=== PATIENT | female | born 1945 | race Caucasian/White ===

== ENCOUNTER → 2016-06-05 | Outpatient (CLI) | payer MEDICARE ==
[~2016-06-05] MED LIST: ADV1DS; ALBU17AE3; ALBU17AE3 IH; ASP325TEC; ATROVENT; BENZ0.5T3 PO; CETI1TAB2; CLNZ.5T; CLON1TAB36; CMBV14.7IN; CYCL10TA45; CYCL10TA9 PO; DCS100C; DIGO250T; DIGO250T96 PO; DONE10TA41 PO; FLUT1DIS26 IH; FRSM40T; FRSM40T PO; GLMP4T; GLYB2.5T4 PO; HYDR1TAB86 PO; KCL20TCR; KCL20TCR PO; LANOXIN; LASIX; LEVO500T69 PO; LISI5TAB14; LORA2TAB PO; LRZ1T; LVT.1T; LVT.1T PO; METO25TA PO; MTF500T PO; MTF500TCR; MTP25TSR; NF-METANX PO; NITR0.3T6 SL; NTR.4SL; NTR.6TD; OXYCODONE; PRD20T PO; PROP1TAB77; SERT100T PO; SLMFT1E; SRTR100T; SYNTHROID; ZESTRIL; [UNRECOGNIZED DRUG - OTHER]
--- OUTSIDE RECORDS SUMMARY | 2016-06-05 15:21 | XMS REPORT | Continuity of Care Document ---
Author Author [facility] Organization [facility] Address Unknown Phone Unavailable Allergies Active Description Code Type Severity Reaction Onset Reported/Identified Relationship to Patient Clinical Status Yes amoxicillin [id number] Drug Allergy Mild DIARRHEA 08/19/2005 Yes ALOEVERA ALOEVERA Unknown N/A 08/19/2005 Yes alprazolam [id number] Drug Allergy Unknown N/A 08/19/2005 Yes aspirin [id number] Drug Allergy Unknown N/A 08/19/2005 Yes caffeine [id number] Drug Allergy Unknown N/A 08/19/2005 Yes citalopram [id number] Drug Allergy Unknown N/A 08/19/2005 Yes clarithromycin [id number] Drug Allergy Unknown N/A 08/19/2005 Yes orphenadrine [id number] Drug Allergy Unknown N/A 08/19/2005 Yes SURGICAL STEEL SURGICAL STEEL Unknown N/A 08/19/2005 Yes TAPES TAPES Unknown N/A 08/19/2005 Yes diltiazem [id number] Drug Allergy Severe ARRYTHMIAS 04/20/2006 Yes verapamil [id number] Drug Allergy Severe ARRYTHMIAS 04/20/2006 Yes diazepam [id number] Drug Allergy Unknown PATIENT CAN SHERIDAN 04/20/2006 Yes esomeprazole [id number] Drug Allergy Unknown "SENSITIVE TO N 04/20/2006 Yes gabapentin [id number] Drug Allergy Unknown "CAUSES KIDNEY 04/20/2006 Yes ketorolac [id number] Drug Allergy Unknown "CAUSES KIDNEY 04/20/2006 Yes levofloxacin [id number] Drug Allergy Unknown ALLERGIC TO "IV 04/20/2006 Yes montelukast [id number] Drug Allergy Unknown "SENSITIVE TO S 04/20/2006 Yes azithromycin [id number] Drug Allergy Unknown N/A 02/21/2011 Yes spironolactone [id number] Drug Allergy Unknown N/A 02/21/2011 Medications Problems Date Dx Coded Attending Type Code Diagnosis Diagnosed By 02/23/2011 Ot 250.00 DIAB MARILIN WO COMPL, TYPE II OR UNSPEC TY 02/23/2011 Ot 610.1 DIFFUS CYSTIC MASTOPATHY 02/23/2011 Ot V10.3 HX OF BREAST MALIGNANCY 06/27/2011 Ot 244.9 HYPOTHYROIDISM NOS 06/27/2011 Ot 250.00 DIAB MARILIN WO COMPL, TYPE II OR UNSPEC TY 06/27/2011 Ot 300.00 ANXIETY STATE NOS 06/27/2011 Ot 305.1 TOBACCO USE DISORDER 06/27/2011 Ot 356.9 IDIO PERIPH NEURPTHY NOS 06/27/2011 Ot 491.21 OBSTR CHRONIC BRONCHITIS, W (ACUTE) EXAC 06/27/2011 Ot 739.2 SOMAT DYSFUNC THORAC REG 06/27/2011 Ot V10.3 HX OF BREAST MALIGNANCY 04/20/2014 SHANDA BOBAN N Ot 305.1 04/20/2014 SHANDA, BOBAN N Ot 496 04/20/2014 SHANDA BOBAN N Ot 786.6 04/20/2014 SHANDA BOBAN N Ot 789.30 04/20/2014 SHANDA BOBAN N Ot V10.3 04/20/2014 SHANDA, BOBAN N Ot V45.71 04/20/2014 SHANDA, BOBAN N Ot V46.2 04/20/2014 SHANDA, BOBAN N Ot V58.69 04/20/2014 SHANDA, BOBAN N Ot V67.09 10/19/2014 SHANDA, BOBAN N Ot 174.9 10/19/2014 SHANDA, BOBAN N Ot 305.1 10/19/2014 SHANDA, BOBAN N Ot 496 10/19/2014 SHANDA, BOBAN N Ot V76.11 03/24/2015 SHANDA, BOBAN N Ot F17.210 03/24/2015 SHANDA, BOBAN N Ot J44.9 03/24/2015 SHANDA, BOBAN N Ot Z08 03/24/2015 SHANDA, BOBAN N Ot Z79.899 03/24/2015 SHANDA, BOBAN N Ot Z85.3 03/24/2015 SHANDA, BOBAN N Ot Z90.12 03/24/2015 SHANDA, BOBAN N Ot Z99.81 03/30/2015 SHANDA, BOBAN N Ot F17.210 03/30/2015 SHANDA, BOBAN N Ot J44.9 03/30/2015 ESTELA LAND N Ot Z08 03/30/2015 ESTELA LAND N Ot Z79.899 03/30/2015 ESTELA LAND N Ot Z85.3 03/30/2015 ESTELA LAND N Ot Z90.12 03/30/2015 ESTELA LAND N Ot Z99.81 10/08/2015 ESTELA LAND N Ot C50.412 MALIG NEOPLASM OF UPPER-OUTER QUADRANT O 10/08/2015 ESTELA LAND N Ot Z12.31 ENCNTR SCREEN MAMMOGRAM FOR MALIGNANT NE 10/27/2015 ESTELA LAND N Ot C50.412 MALIG NEOPLASM OF UPPER-OUTER QUADRANT O 10/27/2015 ESTELA LAND N Ot Z12.31 ENCNTR SCREEN MAMMOGRAM FOR MALIGNANT NE 02/03/2016 TANA CONTRERAS FACC, ALI FACP CCDS Ot I65.23 OCCLUSION AND STENOSIS OF BILATERAL TOPETE 02/04/2016 TANA MAYENC, ALI FACP CCDS Ot F17.210 NICOTINE DEPENDENCE, CIGARETTES , UNCOMPL 02/04/2016 TANA CONTRERAS FACC, ALI FACP CCDS Ot I25.119 ATHSCL HEART DISEASE OF [place] COR ART W 02/04/2016 TANA MAYENC, ALI FACP CCDS Ot I50.9 HEART FAILURE, UNSPECIFIED 02/04/2016 TANA CONTRERAS FACC, ALI FACP CCDS Ot J44.9 CHRONIC OBSTRUCTIVE PULMONARY DISEASE, U 02/04/2016 TANA CONTRERAS FACC, ALI FACP CCDS Ot F17.210 NICOTINE DEPENDENCE, CIGARETTES , UNCOMPL 02/04/2016 TANA CONTRERAS FACC, ALI FACP CCDS Ot I25.119 ATHSCL HEART DISEASE OF [place] COR ART W 02/04/2016 TANA MAYENC, ALI FACP CCDS Ot I50.9 HEART FAILURE, UNSPECIFIED 02/04/2016 TANA MAYENC, ALI FACP CCDS Ot J44.9 CHRONIC OBSTRUCTIVE PULMONARY DISEASE, U 02/23/2016 ESTELA LAND Jessica Ot E03.9 HYPOTHYROIDISM, UNSPECIFIED 02/23/2016 SHANDA, ESTELA N Ot E11.9 TYPE 2 DIABETES MELLITUS WITHOUT COMPLIC 02/23/2016 SHANDA, ESTELA N Ot F17.210 NICOTINE DEPENDENCE, CIGARETTES, UNCOMPL 02/23/2016 ISABELLA LANDLAVELLE Jessica Ot I10 ESSENTIAL (PRIMARY) HYPERTENSION 02/23/2016 SHANDA ESTELA Lopez Ot I25.10 ATHSCL HEART DISEASE OF [place] CORONARY 02/23/2016 SHANDA, ISABELLALAVELLE Jessica Ot I48.91 UNSPECIFIED ATRIAL FIBRILLATION 02/23/2016 SHANDA ESTELA Lopez Ot J44.9 CHRONIC OBSTRUCTIVE PULMONARY DISEASE, U 02/23/2016 SHANDA ESTELA Lopez Ot Z08 ENCNTR FOR FOLLOW-UP EXAM AFTER TRTMT FO 02/23/2016 SHANDA ESTELA Lopez Ot Z79.84 AIRPLANE PILOT COMMERCIAL (CURRENT) USE OF ORAL HYPOGLYC 02/23/2016 SHANDA ESTELA Lopez Ot Z79.899 OTHER AIRPLANE PILOT COMMERCIAL (CURRENT) DRUG THERAPY 02/23/2016 SHANDA ESTELA Lopez Ot Z85.3 PERSONAL HISTORY OF MALIGNANT NEOPLASM O 02/23/2016 SHANDA ESTELA Lopez Ot Z90.12 ACQUIRED ABSENCE OF LEFT BREAST AND NIPP 02/24/2016 TANA MAYENC, ALI FACP CCDS Ot F17.210 NICOTINE DEPENDENCE, CIGARETTES , UNCOMPL 02/24/2016 TANA CONTRERAS FACC, ALI FACP CCDS Ot I25.119 ATHSCL HEART DISEASE OF [place] COR ART W 02/24/2016 TANA CONTRERAS FACC, COREY FACP CCDS Ot I50.9 HEART FAILURE, UNSPECIFIED 02/24/2016 TANA CONTRERAS FACC, ALI FACP CCDS Ot J44.9 CHRONIC OBSTRUCTIVE PULMONARY DISEASE, U 03/06/2016 TANA CONTRERAS FACC, ALI FACP CCDS Ot F17.210 NICOTINE DEPENDENCE, CIGARETTES , UNCOMPL 03/06/2016 TANA CONTRERAS FACC, ALI FACP CCDS Ot I25.119 ATHSCL HEART DISEASE OF [place] COR ART W 03/06/2016 TANA CONTRERAS FACC, COREY FACP CCDS Ot I50.9 HEART FAILURE, UNSPECIFIED 03/06/2016 TANA CONTRERAS FACC, ALI FACP CCDS Ot J44.9 CHRONIC OBSTRUCTIVE PULMONARY DISEASE, U 03/14/2016 SHANDAESTELA Ot E03.9 HYPOTHYROIDISM, UNSPECIFIED 03/14/2016 SHANDAESTELA Ot E11.9 TYPE 2 DIABETES MELLITUS WITHOUT COMPLIC 03/14/2016 ESETLA LAND Ot F17.210 NICOTINE DEPENDENCE, CIGARETTES, UNCOMPL 03/14/2016 ESTELA LAND Jessica Ot I10 ESSENTIAL (PRIMARY) HYPERTENSION 03/14/2016 ESTELA LAND Jessica Ot I25.10 ATHSCL HEART DISEASE OF [place] CORONARY 03/14/2016 ESTELA LAND Jessica Ot I48.91 UNSPECIFIED ATRIAL FIBRILLATION 03/14/2016 ESTELA LAND Jessica Ot J44.9 CHRONIC OBSTRUCTIVE PULMONARY DISEASE, U 03/14/2016 ESTELA LAND Jessica Ot Z08 ENCNTR FOR FOLLOW-UP EXAM AFTER TRTMT FO 03/14/2016 ESTELA LAND Jessica Ot Z79.84 AIRPLANE PILOT COMMERCIAL (CURRENT) USE OF ORAL HYPOGLYC 03/14/2016 ESTELA LAND N Ot Z79.899 OTHER LONGTERM (CURRENT) DRUG THERAPY 03/14/2016 SHANDA, ISABELLALAVELLE N Ot Z85.3 PERSONAL HISTORY OF MALIGNANT NEOPLASM O 03/14/2016 SHANDA, ISABELLALAVELLE N Ot Z90.12 ACQUIRED ABSENCE OF LEFT BREAST AND NIPP 03/31/2016 ESTELA LAND Jessica Ot E03.9 HYPOTHYROIDISM, UNSPECIFIED 03/31/2016 SHANDA, ISABELLALAVELLE Jessica Ot E11.9 TYPE 2 DIABETES MELLITUS WITHOUT COMPLIC 03/31/2016 ESTELA LAND Jessica Ot F17.210 NICOTINE DEPENDENCE, CIGARETTES, UNCOMPL 03/31/2016 ESTELA LAND N Ot I10 ESSENTIAL (PRIMARY) HYPERTENSION 03/31/2016 ESTELA LAND Jessica Ot I25.10 ATHSCL HEART DISEASE OF [place] CORONARY 03/31/2016 ESTELA LAND Jessica Ot I48.91 UNSPECIFIED ATRIAL FIBRILLATION 03/31/2016 ESTELA LAND Jessica Ot J44.9 CHRONIC OBSTRUCTIVE PULMONARY DISEASE, U 03/31/2016 ESTELA LAND Jessica Ot Z08 ENCNTR FOR FOLLOW-UP EXAM AFTER TRTMT FO 03/31/2016 ESTELA LAND Jessica Ot Z79.84 AIRPLANE PILOT COMMERCIAL (CURRENT) USE OF ORAL HYPOGLYC 03/31/2016 SHANDA, ISABELLALAVELLE N Ot Z79.899 OTHER LONGTERM (CURRENT) DRUG THERAPY 03/31/2016 SHANDAESTELA KELLY N Ot Z85.3 PERSONAL HISTORY OF MALIGNANT NEOPLASM O 03/31/2016 SHANDAESTELA KELLY N Ot Z90.12 ACQUIRED ABSENCE OF LEFT BREAST AND NIPP 04/04/2016 Ot 174.9 MALIGN NEOPL BREAST NOS 04/04/2016 Ot 496 CHR AIRWAY OBSTRUCT NEC 04/04/2016 Ot 793.89 OTH (ABN) FINDINGS ON RADIOLOGICAL EXAMI 04/04/2016 Ot V10.3 HX OF BREAST MALIGNANCY 04/04/2016 Ot V12.3 HX-BLOOD DISEASES 04/04/2016 Ot V45.71 ACQUIRED ABSENCE OF BREAST AND NIPPLE 04/04/2016 Ot V46.2 SUPPLEMENTAL OXYGEN 04/04/2016 Ot V58.69 OTH MED,LT,CURRENT USE 04/04/2016 Ot V64.2 NO PROC/PATIENT DECISION 04/04/2016 Ot V67.09 SURGERY FOLLOW-UP, OTHER SURGERY 04/04/2016 Ot 611.72 LUMP OR MASS IN BREAST 04/04/2016 Ot V72.83 EXAM PRE-OPERATIVE NEC 04/04/2016 Ot 611.72 LUMP OR MASS IN BREAST 04/04/2016 Ot V67.09 SURGERY FOLLOW-UP, OTHER SURGERY 04/04/2016 Ot 790.5 ABN SERUM ENZY LEVEL NEC 04/04/2016 Ot 356.9 IDIO PERIPH NEURPTHY NOS 04/04/2016 Ot 496 CHR AIRWAY OBSTRUCT NEC 04/04/2016 Ot 611.72 LUMP OR MASS IN BREAST 04/04/2016 Ot V10.3 HX OF BREAST MALIGNANCY 04/04/2016 Ot V12.3 HX-BLOOD DISEASES 04/04/2016 Ot V45.71 ACQUIRED ABSENCE OF BREAST AND NIPPLE 04/04/2016 Ot V46.2 SUPPLEMENTAL OXYGEN 04/04/2016 Ot V58.69 OTH MED,LT,CURRENT USE 04/04/2016 Ot V67.09 SURGERY FOLLOW-UP, OTHER SURGERY 04/04/2016 Ot 174.9 MALIGN NEOPL BREAST NOS 04/04/2016 Ot 793.80 UNSPEC ABNORMAL MAMMOGRAM 04/04/2016 Ot V45.71 ACQUIRED ABSENCE OF BREAST AND NIPPLE 04/04/2016 Ot 440.20 ATHEROSCLEROSIS [place] ARTERIES EXTREMIT 04/04/2016 Ot 729.5 PAIN IN LIMB 04/04/2016 Ot 785.9 CARDIOVAS SYS SYMP NEC 04/04/2016 ESTELA LAND Ot 174.9 MALIGN NEOPL BREAST NOS 04/04/2016 ESTELA LAND Ot 793.80 UNSPEC ABNORMAL MAMMOGRAM 04/04/2016 ESTELA LAND Ot 305.1 TOBACCO USE DISORDER 04/04/2016 ESTELA LAND N Ot 356.9 IDIO PERIPH NEURPTHY NOS 04/04/2016 ESTELA LAND N Ot 496 CHR AIRWAY OBSTRUCT NEC 04/04/2016 ESTELA LAND N Ot 786.6 CHEST SWELLING/MASS/LUMP 04/04/2016 ESTELA LAND N Ot V10.3 HX OF BREAST MALIGNANCY 04/04/2016 SHANDA ISABELLALAVELLE N Ot V12.3 HX-BLOOD DISEASES 04/04/2016 SHANDA ESTELA N Ot V45.71 ACQUIRED ABSENCE OF BREAST AND NIPPLE 04/04/2016 SHANDA ESTELA N Ot V46.2 SUPPLEMENTAL OXYGEN 04/04/2016 ESTELA LAND N Ot V58.69 OTH MED,LT,CURRENT USE 04/04/2016 SHANDA ISABELLALAVELLE N Ot V67.09 SURGERY FOLLOW-UP, OTHER SURGERY 04/04/2016 ESTELA LAND N Ot 786.6 CHEST SWELLING/MASS/LUMP 04/04/2016 SHANDA ISABELLALAVELLE N Ot V10.3 HX OF BREAST MALIGNANCY 04/04/2016 SHANDA ISABELLALAVELLE N Ot 174.9 MALIGN NEOPL BREAST NOS 04/04/2016 ESTELA LAND N Ot 793.89 OTH (ABN) FINDINGS ON RADIOLOGICAL EXAMI 04/04/2016 ALBINO CHOU HIGH ENERGY FORMING EQUIPMENT OPERATOR Ot 174.9 MALIGN NEOPL BREAST NOS 04/04/2016 ALBINO CHOU HIGH ENERGY FORMING EQUIPMENT OPERATOR Ot 786.6 CHEST SWELLING/MASS/LUMP 04/04/2016 ESTELA LAND N Ot 305.1 TOBACCO USE DISORDER 04/04/2016 SHANDA ISABELLALAVELLE Jessica Ot 496 CHR AIRWAY OBSTRUCT NEC 04/04/2016 SHANDA ISABELLALAVELLE N Ot 786.6 CHEST SWELLING/MASS/LUMP 04/04/2016 SHANDA ISABELLALAVELLE N Ot 789.30 ABDOMINAL/PELVIC SWELLING,MASS/LUMP UNSP 04/04/2016 SHANDA ESTELA Lopez Ot V10.3 HX OF BREAST MALIGNANCY 04/04/2016 ESTELA LAND N Ot V45.71 ACQUIRED ABSENCE OF BREAST AND NIPPLE 04/04/2016 SHANDA ESTELA N Ot V46.2 SUPPLEMENTAL OXYGEN 04/04/2016 SHANDA ESTELA Lopez Ot V58.69 OTH MED,LT,CURRENT USE 04/04/2016 SHANDA ESTELA N Ot V67.09 SURGERY FOLLOW-UP, OTHER SURGERY 04/04/2016 SHANDA, ESTELA Lopez Ot 174.9 MALIGN NEOPL BREAST NOS 04/04/2016 SHANDA, ESTELA Lopez Ot 305.1 TOBACCO USE DISORDER 04/04/2016 SHANDA ESTELA Lopez Ot 496 CHR AIRWAY OBSTRUCT NEC 04/04/2016 SHANDA ESTELA Lopez Ot V76.11 SCRN MAMMO-HIGH RISK PT, MALIGNANT NEOPL 04/04/2016 SHANDA ESTELA Lopez Ot F17.210 NICOTINE DEPENDENCE, CIGARETTES, UNCOMPL 04/04/2016 SHANDA ISABELLALAVELLE Jessica Ot J44.9 CHRONIC OBSTRUCTIVE PULMONARY DISEASE, U 04/04/2016 SHANDA ESTELA Lopez Ot Z08 ENCNTR FOR FOLLOW-UP EXAM AFTER TRTMT FO 04/04/2016 SHANDA ESTELA Lopez Ot Z79.899 OTHER LONGTERM (CURRENT) DRUG THERAPY 04/04/2016 SHANDAESTELA Ot Z85.3 PERSONAL HISTORY OF MALIGNANT NEOPLASM O 04/04/2016 SHANDA, ESETLA Lopez Ot Z90.12 ACQUIRED ABSENCE OF LEFT BREAST AND NIPP 04/04/2016 SHANDAESTELA Ot Z99.81 DEPENDENCE ON SUPPLEMENTAL OXYGEN 04/04/2016 SHANDA, ESTELA Lopez Ot C50.412 MALIG NEOPLASM OF UPPER-OUTER QUADRANT O 04/04/2016 SHADNA, ESTELA Lopez Ot Z12.31 ENCNTR SCREEN MAMMOGRAM FOR MALIGNANT NE 04/04/2016 TANA CONTRERAS FACC, ALI FACP CCDS Ot F17.210 NICOTINE DEPENDENCE, CIGARETTES , UNCOMPL 04/04/2016 TANA CONTRERAS FACC, ALI FACP CCDS Ot I25.119 ATHSCL HEART DISEASE OF [place] COR ART W 04/04/2016 TANA CONTRERAS FACC, ALI FACP CCDS Ot I50.9 HEART FAILURE, UNSPECIFIED 04/04/2016 TANA CONTRERAS FACC, ALI FACP CCDS Ot J44.9 CHRONIC OBSTRUCTIVE PULMONARY DISEASE, U 04/04/2016 SHANDAESTELA Ot E03.9 HYPOTHYROIDISM, UNSPECIFIED 04/04/2016 ESTELA LAND N Ot E11.9 TYPE 2 DIABETES MELLITUS WITHOUT COMPLIC 04/04/2016 ESTELA LAND N Ot F17.210 NICOTINE DEPENDENCE, CIGARETTES, UNCOMPL 04/04/2016 ESTELA LAND Ot I10 ESSENTIAL (PRIMARY) HYPERTENSION 04/04/2016 ESTELA LAND Ot I25.10 ATHSCL HEART DISEASE OF [place] CORONARY 04/04/2016 ESTELA LAND Ot I48.91 UNSPECIFIED ATRIAL FIBRILLATION 04/04/2016 ESTELA LAND Ot J44.9 CHRONIC OBSTRUCTIVE PULMONARY DISEASE, U 04/04/2016 ESTELA LAND Ot Z08 ENCNTR FOR FOLLOW-UP EXAM AFTER TRTMT FO 04/04/2016 ESTELA LAND Ot Z79.84 LONGTERM (CURRENT) USE OF ORAL HYPOGLYC 04/04/2016 ESTELA LAND Ot Z79.899 OTHER AIRPLANE PILOT COMMERCIAL (CURRENT) DRUG THERAPY 04/04/2016 ESTELA LAND Ot Z85.3 PERSONAL HISTORY OF MALIGNANT NEOPLASM O 04/04/2016 ESTELA LAND Ot Z90.12 ACQUIRED ABSENCE OF LEFT BREAST AND NIPP Procedures Results Encounters ACCT No. Visit Date/Time Discharge Status Pt. Type Provider Facility Loc./Unit Complaint [id number] 02/23/2015 11:31:00 2014 23:59:59 CLS Outpatient ESTELA LAND [facility] FS [id number] 09/30/2014 14:47:00 2014 23:59:59 CLS Outpatient ESTELA LAND [facility] RAD SCREENING [id number] 02/24/2014 16:53:00 2013 23:59:59 CLS Outpatient ESTELA LAND Jessica [facility] FS [id number] 09/29/2013 12:28:00 2013 23:59:59 CLS Outpatient ALBINO CHOU [facility] RAD BREAST CA [id number] 03/26/2013 12:38:00 2012 23:59:59 CLS Outpatient ESTELA LAND Jessica [facility] RAD BREAST CA,SIX MONTH F/U [id number] 02/28/2013 11:51:00 2012 23:59:59 CLS Outpatient SHANDAISABELLALAVELLE Lopez [facility] RAD HX BREAST CANCER [id number] 02/25/2013 14:44:00 2012 23:59:59 CLS Outpatient ESTELA LAND Jessica [facility] FS [id number] 09/24/2012 12:35:00 2012 23:59:59 CLS Outpatient ESTELA LAND Jessica [facility] RAD 6 MONTH FOLLOW UP [id number] 04/04/2016 09:04:00 ACT Outpatient TANA CONTRERAS FACC, COREY FACP CCDS [facility] CATH CAD,TIA,FATIGUE [id number] 02/22/2016 11:13:00 ACT Outpatient SHANDA ISABELLALAVELLE Lopez [facility] FS [id number] 02/03/2016 13:01:00 ACT Outpatient TANA CONTRERAS FACC, ALI FACP CCDS [facility] RAD AP,CAD,PAG,COPD [id number] 10/05/2015 13:13:00 ACT Outpatient SHANDA ESTELA Jessica [facility] RAD SCREENING,BREAST CA [id number] 03/18/2012 12:27:00 Document Registration [id number] 03/18/2012 12:23:00 Document Registration [id number] 02/06/2012 13:08:00 Document Registration [id number] 01/09/2012 13:42:00 Document Registration [id number] 09/11/2011 13:55:00 Document Registration [id number] 06/23/2011 12:10:00 Document Registration [id number] 02/23/2011 05:35:00 Document Registration [id number] 02/21/2011 14:35:00 Document Registration [id number] 02/06/2011 13:13:00 Document Registration [id number] 02/01/2011 10:31:00 Document Registration
--- NOTE | 2016-06-05 16:32 | Diagnostic Imaging Report ---
EXAM: PA and lateral views of the chest. INDICATION: Cough. COMPARISON: 06/23/2011. FINDINGS: There are multiple calcified granulomas seen. There is no focal consolidation. The heart size is normal. No effusion or pneumothorax. The mediastinum and reginaldo appear unremarkable. There is a integration project manager seen projecting over the left side of the chest and multiple surgical clips in the left axilla are noted. IMPRESSION: No acute process. Report given to nurse (Eri) at 4:32 p.m. on 06/05/2016/cb Dictated by: Dictated on workstation # [id number]
== END ==
LOC: RAD 15:16
PROVIDERS: ATTEND Internal Medicine
DX: R05 Cough (principal); J44.9 Chronic obstructive pulmonary disease, unspecified
CPT/HCPCS: 71020

== ENCOUNTER → 2016-10-05 | Outpatient (CLI) | payer MEDICARE ==
--- NOTE | 2016-10-05 17:21 | Diagnostic Imaging Report ---
Right the breast seen on mammogram. CAD is utilized. From comparison 10/05/15. Indication: screening. History of a left mastectomy for breast cancer in 2004. From findings: The right breast is composed of heterogeneously dense parenchyma which may decrease mammographic sensitivity. There is no mass, architectural distortion or suspicious cluster of calcifications seen. Benign-appearing calcifications are from noted. Allowing for technique and positional differences, no suspicious change is seen. IMPRESSION: No significant change. ACR BI-RADS Category 2: Benign findings. Result letter will be mailed to the patient. Note: At least 10% of breast cancer is not imaged by mammography. Dictated by: Dictated on workstation # [id number]
== END ==
LOC: RAD 12:52
PROVIDERS: ATTEND Internal Medicine Hematology & Oncology
DX: Z12.31 Encounter for screening mammogram for malignant neoplasm of breast (principal); Z85.3 Personal history of malignant neoplasm of breast

== ENCOUNTER → 2017-01-03 | Outpatient (CLI) | payer MEDICARE ==
--- NOTE | 2017-01-03 20:12 | Diagnostic Imaging Report ---
PA and lateral views of the chest. INDICATION: Cough. FINDINGS: There is evidence of prior granulomatous process with calcified granulomas similar to 06/05/16 exam. There is no focal infiltrate. The heart size is normal. No effusion or pneumothorax. The mediastinum and reginaldo appear unremarkable. cafeteria monitor projects over the left hemithorax and left breast surgical clips are seen. IMPRESSION: No acute process. Dictated by: Dictated on workstation # [id number]
== END ==
LOC: RAD 16:28
PROVIDERS: ATTEND Internal Medicine
DX: R05 Cough (principal)
CPT/HCPCS: 71020

== ENCOUNTER 2017-04-25 13:23 | Outpatient (RCR) | payer MEDICARE ==
[2017-03-13 14:43] LABS: BASOPHILS % (AUTO) 0 % (0-10); EOSINOPHILS # (AUTO) 0.2 10^3/uL (0.0-0.3); EOSINOPHILS % (AUTO) 2 % (0-10); HEMATOCRIT 34 % (35-52); HEMOGLOBIN 10.5 G/DL (11.5-16.0); LYMPHOCYTES # (AUTO) 2.8 X 10^3 (1.0-4.0); LYMPHOCYTES % (AUTO) 31 % (12-44); MEAN CORPUSCULAR HEMOGLOBIN 23 PG (25-34); MEAN CORPUSCULAR HGB CONC 31 G/DL (32-36); MEAN CORPUSCULAR VOLUME 74 FL (80-99); MEAN PLATELET VOLUME 9.7 FL (7.4-10.4); MONOCYTES # (AUTO) 0.5 X 10^3 (0.0-1.0); MONOCYTES % (AUTO) 6 % (0-12); NEUTROPHILS # (AUTO) 5.5 X 10^3 (1.8-7.8); NEUTROPHILS % (AUTO) 61 % (42-75); PLATELET COUNT 411 10^3/uL (130-400); RED CELL DISTRIBUTION WIDTH 17.7 % (10.0-14.5)
[2017-03-13 15:00] LABS: ALANINE AMINOTRANSFERASE 20 U/L (0-55); ALBUMIN 3.9 GM/DL (3.2-4.5); ALKALINE PHOSPHATASE 115 U/L (40-136); BILIRUBIN,TOTAL 0.3 MG/DL (0.1-1.0); BUN/CREATININE RATIO 15; CARBON DIOXIDE 27 MMOL/L (21-32); CHLORIDE 101 MMOL/L (98-107); CREATININE SERUM 0.71 MG/DL (0.60-1.30); GFR ESTIMATED > 60; GLUCOSE 110 MG/DL (70-105); POTASSIUM 3.8 MMOL/L (3.6-5.0); SODIUM 141 MMOL/L (135-145); TOTAL PROTEIN 7.5 GM/DL (6.4-8.2)
[2017-03-13 15:32] LABS: ABSOLUTE RETIC # 64 10e9/L (24-90); RETICULOCYTE % 1.38 % (0.50-2.40)
[~2017-04-25 13:23] MED LIST changes: +FERRIC CARBOXYMALTOSE (CANCER) 750 MG in NS (IVPB) CANCER CENTER 250 ML IV SCH
[2017-04-25 13:45] LABS: ABSOLUTE RETIC # 53 10e9/L (24-90); BASOPHILS % (AUTO) 0 % (0-10); EOSINOPHILS # (AUTO) 0.1 10^3/uL (0.0-0.3); EOSINOPHILS % (AUTO) 1 % (0-10); HEMATOCRIT 45 % (35-52); HEMOGLOBIN 14.2 G/DL (11.5-16.0); LYMPHOCYTES # (AUTO) 1.3 X 10^3 (1.0-4.0); LYMPHOCYTES % (AUTO) 19 % (12-44); MEAN CORPUSCULAR HEMOGLOBIN 27 PG (25-34); MEAN CORPUSCULAR HGB CONC 32 G/DL (32-36); MEAN CORPUSCULAR VOLUME 84 FL (80-99); MEAN PLATELET VOLUME 9.9 FL (7.4-10.4); MONOCYTES # (AUTO) 0.4 X 10^3 (0.0-1.0); MONOCYTES % (AUTO) 6 % (0-12); NEUTROPHILS % (AUTO) 74 % (42-75); PLATELET COUNT 256 10^3/uL (130-400); RED BLOOD COUNT 5.33 10^6/uL (4.35-5.85); RED CELL DISTRIBUTION WIDTH 26.4 % (10.0-14.5); WHITE BLOOD COUNT 6.9 10^3/uL (4.3-11.0)
== END 2017-06-11 | disposition home or self-care (01) ==
LOC: ONC 13:23
PROVIDERS: ATTEND Internal Medicine Hematology & Oncology
DX: Z08 Encounter for follow-up examination after completed treatment for malignant neoplasm (principal); Z85.3 Personal history of malignant neoplasm of breast; Z90.12 Acquired absence of left breast and nipple; J44.9 Chronic obstructive pulmonary disease, unspecified; I25.10 Atherosclerotic heart disease of native coronary artery without angina pectoris; F17.210 Nicotine dependence, cigarettes, uncomplicated; E11.9 Type 2 diabetes mellitus without complications; I10 Essential (primary) hypertension; E03.9 Hypothyroidism, unspecified; I48.91 Unspecified atrial fibrillation; Z79.84 Long term (current) use of oral hypoglycemic drugs; Z79.899 Other long term (current) drug therapy
CPT/HCPCS: 36415; 80053; 82728; 83540; 85025; 85045; 96365; 99213

== ENCOUNTER → 2017-10-03 | Outpatient (CLI) | payer MEDICARE ==
[~2017-10-03] MED LIST changes: -FERRIC CARBOXYMALTOSE (CANCER) 750 MG in NS (IVPB) CANCER CENTER 250 ML IV SCH
--- NOTE | 2017-10-03 12:55 | Diagnostic Imaging Report ---
PROCEDURE: US left lower extremity venous. TECHNIQUE: Multiple real-time grayscale images were obtained over the left lower extremity in various projections. Additional duplex Doppler and color Doppler images were also obtained. INDICATION: Left leg pain and swelling. EXAMINATION: Grayscale and color Doppler evaluation of the deep veins of the left lower extremity were performed with waveform analysis. FINDINGS: Continuous venous flow is present. No intraluminal filling defect is identified. There is normal compressibility and response to augmentation. No abnormal perivascular fluid collection is identified. IMPRESSION: No ultrasound evidence of left lower extremity deep venous thrombosis. Dictated by: Dictated on workstation # [id number]
== END ==
LOC: RAD 11:51
PROVIDERS: ATTEND Nurse Practitioner Family
DX: M79.89 Other specified soft tissue disorders (principal)

== ENCOUNTER → 2017-10-11 | Outpatient (CLI) | payer MEDICARE ==
--- NOTE | 2017-10-12 17:04 | Diagnostic Imaging Report ---
INDICATION: Routine screening. Comparison is made with prior mammogram from 10/05/2016 and 10/05/2015. Unilateral right 2-D and 3-D screening mammography was performed. The current study was also evaluated with a Computer Aided Detection (CAD) system. FINDINGS: The right breast is heterogeneously dense, limiting the sensitivity of mammography. Benign calcifications in the right breast are noted. No mass or malignant-appearing microcalcifications are seen. The right axilla is unremarkable. IMPRESSION: No mammographic features suspicious for malignancy are identified. ACR BI-RADS Category 2: Benign findings. Result letter will be mailed to the patient. Note: At least 10% of breast cancer is not imaged by mammography. Dictated by: Dictated on workstation # [id number]
== END ==
LOC: RAD 15:28
PROVIDERS: ATTEND Nurse Practitioner Adult Health
DX: Z12.31 Encounter for screening mammogram for malignant neoplasm of breast (principal); C50.412 Malignant neoplasm of upper-outer quadrant of left female breast

== ENCOUNTER → 2018-01-08 | Outpatient (CLI) | payer MEDICARE ==
--- NOTE | 2018-01-08 10:32 | Diagnostic Imaging Report ---
PROCEDURE: US Hepatic (Liver). TECHNIQUE: Multiple real-time grayscale images were obtained over the right upper quadrant in various projections. INDICATION: Elevated liver enzymes. Liver is enlarged at 19 cm. No discrete liver mass is identified. The portal vein is patent and shows normal direction of flow. Gallbladder is surgically absent. Extrahepatic bile duct is dilated to 10 mm. The visualized pancreas is unremarkable. Right kidney is unremarkable. There is no ascites. IMPRESSION: 1. Hepatomegaly. No discrete liver mass is detected. 2. Status post cholecystectomy. There is extrahepatic biliary ductal dilatation, perhaps owing to post cholecystectomy state. No other significant abnormality is detected. Dictated by: Dictated on workstation # [id number]
== END ==
LOC: RAD 09:01
PROVIDERS: ATTEND Internal Medicine
DX: K83.8 Other specified diseases of biliary tract (principal); R16.0 Hepatomegaly, not elsewhere classified; R94.5 Abnormal results of liver function studies; Z90.49 Acquired absence of other specified parts of digestive tract
CPT/HCPCS: 76705

== ENCOUNTER 2018-05-07 13:01 | Outpatient (RCR) | payer MEDICARE ==
[2018-05-07 13:16] LABS: BASOPHILS # (AUTO) 0.1 10^3/uL (0.0-0.1); BASOPHILS % (AUTO) 1 % (0-10); EOSINOPHILS # (AUTO) 0.1 10^3/uL (0.0-0.3); EOSINOPHILS % (AUTO) 1 % (0-10); HEMATOCRIT 42 % (35-52); HEMOGLOBIN 13.4 G/DL (11.5-16.0); LYMPHOCYTES # (AUTO) 2.9 X 10^3 (1.0-4.0); LYMPHOCYTES % (AUTO) 30 % (12-44); MEAN CORPUSCULAR HEMOGLOBIN 31 PG (25-34); MEAN CORPUSCULAR HGB CONC 32 G/DL (32-36); MEAN CORPUSCULAR VOLUME 95 FL (80-99); MEAN PLATELET VOLUME 9.2 FL (7.4-10.4); MONOCYTES # (AUTO) 0.5 X 10^3 (0.0-1.0); MONOCYTES % (AUTO) 5 % (0-12); NEUTROPHILS # (AUTO) 6.3 X 10^3 (1.8-7.8); NEUTROPHILS % (AUTO) 64 % (42-75); PLATELET COUNT 393 10^3/uL (130-400); RED CELL DISTRIBUTION WIDTH 13.3 % (10.0-14.5); WHITE BLOOD COUNT 9.9 10^3/uL (4.3-11.0)
[2018-05-07 13:41] LABS: ALANINE AMINOTRANSFERASE 13 U/L (0-55); ALBUMIN 3.9 GM/DL (3.2-4.5); ALKALINE PHOSPHATASE 77 U/L (40-136); BILIRUBIN,TOTAL 0.2 MG/DL (0.1-1.0); BUN/CREATININE RATIO 14; CALCIUM 9.2 MG/DL (8.5-10.1); CARBON DIOXIDE 23 MMOL/L (21-32); CHLORIDE 100 MMOL/L (98-107); CREATININE SERUM 0.79 MG/DL (0.60-1.30); GFR ESTIMATED > 60; GLUCOSE 139 MG/DL (70-105); POTASSIUM 3.9 MMOL/L (3.6-5.0); SODIUM 138 MMOL/L (135-145); TOTAL PROTEIN 7.4 GM/DL (6.4-8.2)
== END 2018-08-05 | disposition home or self-care (01) ==
LOC: ONC 13:01
PROVIDERS: ATTEND Internal Medicine Hematology & Oncology
DX: Z08 Encounter for follow-up examination after completed treatment for malignant neoplasm (principal); Z85.3 Personal history of malignant neoplasm of breast; J44.9 Chronic obstructive pulmonary disease, unspecified; I25.10 Atherosclerotic heart disease of native coronary artery without angina pectoris; F17.210 Nicotine dependence, cigarettes, uncomplicated; E11.9 Type 2 diabetes mellitus without complications; I10 Essential (primary) hypertension; E03.9 Hypothyroidism, unspecified; I48.91 Unspecified atrial fibrillation; Z79.84 Long term (current) use of oral hypoglycemic drugs; Z79.899 Other long term (current) drug therapy
CPT/HCPCS: 36415; 80053; 82728; 83540; 85025; 99213

== ENCOUNTER 2018-11-04 13:38 | Outpatient (RCR) | payer MEDICARE ==
[2018-11-04 14:08] LABS: BASOPHILS % (AUTO) 0 % (0-10); EOSINOPHILS # (AUTO) 0.1 10^3/uL (0.0-0.3); EOSINOPHILS % (AUTO) 1 % (0-10); HEMATOCRIT 47 % (35-52); HEMOGLOBIN 15.6 G/DL (11.5-16.0); LYMPHOCYTES # (AUTO) 2.1 X 10^3 (1.0-4.0); LYMPHOCYTES % (AUTO) 28 % (12-44); MEAN CORPUSCULAR HEMOGLOBIN 31 PG (25-34); MEAN CORPUSCULAR HGB CONC 33 G/DL (32-36); MEAN CORPUSCULAR VOLUME 94 FL (80-99); MEAN PLATELET VOLUME 9.9 FL (7.4-10.4); MONOCYTES # (AUTO) 0.5 X 10^3 (0.0-1.0); MONOCYTES % (AUTO) 7 % (0-12); NEUTROPHILS # (AUTO) 4.9 X 10^3 (1.8-7.8); NEUTROPHILS % (AUTO) 65 % (42-75); PLATELET COUNT 292 10^3/uL (130-400); RED CELL DISTRIBUTION WIDTH 13.4 % (10.0-14.5); WHITE BLOOD COUNT 7.6 10^3/uL (4.3-11.0)
[2018-11-04 14:25] LABS: ALANINE AMINOTRANSFERASE 243 U/L (0-55); ALBUMIN 4.6 GM/DL (3.2-4.5); ALKALINE PHOSPHATASE 131 U/L (40-136); BILIRUBIN,TOTAL 0.3 MG/DL (0.1-1.0); BUN/CREATININE RATIO 10; CALCIUM 9.9 MG/DL (8.5-10.1); CARBON DIOXIDE 30 MMOL/L (21-32); CHLORIDE 95 MMOL/L (98-107); CREATININE SERUM 0.82 MG/DL (0.60-1.30); GFR ESTIMATED > 60; GLUCOSE 97 MG/DL (70-105); POTASSIUM 4.2 MMOL/L (3.6-5.0); SODIUM 136 MMOL/L (135-145); TOTAL PROTEIN 7.6 GM/DL (6.4-8.2)
== END 2019-02-02 | disposition home or self-care (01) ==
LOC: ONC 13:38
PROVIDERS: ATTEND Internal Medicine Hematology & Oncology
DX: Z08 Encounter for follow-up examination after completed treatment for malignant neoplasm (principal); Z85.3 Personal history of malignant neoplasm of breast; J44.9 Chronic obstructive pulmonary disease, unspecified; I25.10 Atherosclerotic heart disease of native coronary artery without angina pectoris; F17.210 Nicotine dependence, cigarettes, uncomplicated; E11.9 Type 2 diabetes mellitus without complications; I10 Essential (primary) hypertension; E03.9 Hypothyroidism, unspecified; I48.91 Unspecified atrial fibrillation; Z79.84 Long term (current) use of oral hypoglycemic drugs; Z79.899 Other long term (current) drug therapy
CPT/HCPCS: 36415; 80053; 82728; 84443; 85025; 99213

== ENCOUNTER → 2018-11-04 | Outpatient (CLI) | payer MEDICARE ==
--- NOTE | 2018-11-05 12:40 | Diagnostic Imaging Report ---
Indication: Routine screening. Comparison is made with prior mammogram 10/11/2017 and 10/05/2016. Unilateral right 2-D and 3-D screening mammography was performed with CAD. Scattered fibronodular densities are identified bilaterally. The parenchymal pattern is stable. There are benign calcifications. No mass or malignant appearing microcalcifications are seen. Axillae are unremarkable. Impression: BI-RADS category 2 No mammographic features suspicious for malignancy are identified. ACR BI-RADS Category 2: Benign findings. Result letter will be mailed to the patient. Note: At least 10% of breast cancer is not imaged by mammography. Dictated by: Dictated on workstation # [id number]
== END ==
LOC: RAD 15:19
PROVIDERS: ATTEND Internal Medicine Hematology & Oncology
DX: Z12.31 Encounter for screening mammogram for malignant neoplasm of breast (principal); C50.919 Malignant neoplasm of unspecified site of unspecified female breast

== ENCOUNTER → 2019-05-06 | Outpatient (CLI) | payer MEDICARE ==
[2019-05-06 13:31] LABS: BASOPHILS % (AUTO) 0 % (0-10); EOSINOPHILS % (AUTO) 0 % (0-10); HEMATOCRIT 48 % (35-52); HEMOGLOBIN 15.6 G/DL (11.5-16.0); LYMPHOCYTES # (AUTO) 2.5 X 10^3 (1.0-4.0); LYMPHOCYTES % (AUTO) 27 % (12-44); MEAN CORPUSCULAR HEMOGLOBIN 31 PG (25-34); MEAN CORPUSCULAR HGB CONC 32 G/DL (32-36); MEAN CORPUSCULAR VOLUME 95 FL (80-99); MEAN PLATELET VOLUME 9.5 FL (7.4-10.4); MONOCYTES # (AUTO) 0.5 X 10^3 (0.0-1.0); MONOCYTES % (AUTO) 5 % (0-12); NEUTROPHILS # (AUTO) 6.3 X 10^3 (1.8-7.8); NEUTROPHILS % (AUTO) 67 % (42-75); PLATELET COUNT 276 10^3/uL (130-400); RED CELL DISTRIBUTION WIDTH 13.6 % (10.0-14.5); WHITE BLOOD COUNT 9.3 10^3/uL (4.3-11.0)
[2019-05-06 13:50] LABS: ALANINE AMINOTRANSFERASE 32 U/L (0-55); ALBUMIN 4.4 GM/DL (3.2-4.5); ALKALINE PHOSPHATASE 74 U/L (40-136); BILIRUBIN,TOTAL 0.3 MG/DL (0.1-1.0); BUN/CREATININE RATIO 12; CALCIUM 9.4 MG/DL (8.5-10.1); CARBON DIOXIDE 24 MMOL/L (21-32); CHLORIDE 98 MMOL/L (98-107); CREATININE SERUM 0.83 MG/DL (0.60-1.30); GFR ESTIMATED > 60; GLUCOSE 85 MG/DL (70-105); POTASSIUM 3.7 MMOL/L (3.6-5.0); SODIUM 137 MMOL/L (135-145); TOTAL PROTEIN 7.3 GM/DL (6.4-8.2)
== END ==
LOC: EDSTATUS 02-03 15:39 → ONC 13:02
PROVIDERS: ATTEND Internal Medicine Hematology & Oncology
DX: C50.412 Malignant neoplasm of upper-outer quadrant of left female breast (principal); J44.9 Chronic obstructive pulmonary disease, unspecified; K43.9 Ventral hernia without obstruction or gangrene; Z86.39 Personal history of other endocrine, nutritional and metabolic disease; Z86.2 Personal history of diseases of the blood and blood-forming organs and certain disorders involving the immune mechanism; Z90.12 Acquired absence of left breast and nipple
CPT/HCPCS: 80053; 82728; 85025; 99213

== ENCOUNTER → 2020-01-19 | Outpatient (CLI) | payer MEDICARE ==
[2020-01-19 13:35] LABS: BASOPHILS % (AUTO) 0 % (0-10); EOSINOPHILS # (AUTO) 0.1 10^3/uL (0.0-0.3); EOSINOPHILS % (AUTO) 1 % (0-10); HEMATOCRIT 49 % (35-52); HEMOGLOBIN 16.3 g/dL (11.5-16.0); LYMPHOCYTES # (AUTO) 2.9 10^3/uL (1.0-4.0); LYMPHOCYTES % (AUTO) 31 % (12-44); MEAN CORPUSCULAR HEMOGLOBIN 31 pg (25-34); MEAN CORPUSCULAR HGB CONC 34 g/dL (32-36); MEAN CORPUSCULAR VOLUME 93 fL (80-99); MEAN PLATELET VOLUME 9.3 fL (9.0-12.2); MONOCYTES # (AUTO) 0.6 10^3/uL (0.0-1.0); MONOCYTES % (AUTO) 6 % (0-12); NEUTROPHILS # (AUTO) 5.7 10^3/uL (1.8-7.8); NEUTROPHILS % (AUTO) 60 % (42-75); PLATELET COUNT 305 10^3/uL (130-400); WHITE BLOOD COUNT 9.4 10^3/uL (4.3-11.0)
== END ==
LOC: ONC 12:39
PROVIDERS: ATTEND Internal Medicine Hematology & Oncology
DX: C50.912 Malignant neoplasm of unspecified site of left female breast (principal); J44.9 Chronic obstructive pulmonary disease, unspecified; K43.9 Ventral hernia without obstruction or gangrene; I25.10 Atherosclerotic heart disease of native coronary artery without angina pectoris; E11.9 Type 2 diabetes mellitus without complications; I10 Essential (primary) hypertension; E03.9 Hypothyroidism, unspecified; I48.0 Paroxysmal atrial fibrillation; Z90.12 Acquired absence of left breast and nipple; Z86.39 Personal history of other endocrine, nutritional and metabolic disease
CPT/HCPCS: 82728; 85025; G0463; 99213

== ENCOUNTER → 2021-02-28 | Outpatient (CLI) | payer MEDICARE ==
[2021-02-28 13:34] LABS: BASOPHILS # (AUTO) 0.1 10^3/uL (0.0-0.1); BASOPHILS % (AUTO) 1 % (0-10); EOSINOPHILS # (AUTO) 0.1 10^3/uL (0.0-0.3); EOSINOPHILS % (AUTO) 2 % (0-10); HEMATOCRIT 47 % (35-52); HEMOGLOBIN 15.7 g/dL (11.5-16.0); LYMPHOCYTES % (AUTO) 25 % (12-44); MEAN CORPUSCULAR HEMOGLOBIN 32 pg (25-34); MEAN CORPUSCULAR HGB CONC 33 g/dL (32-36); MEAN CORPUSCULAR VOLUME 95 fL (80-99); MEAN PLATELET VOLUME 9.4 fL (9.0-12.2); MONOCYTES # (AUTO) 0.6 10^3/uL (0.0-1.0); MONOCYTES % (AUTO) 7 % (0-12); NEUTROPHILS # (AUTO) 5.3 10^3/uL (1.8-7.8); NEUTROPHILS % (AUTO) 66 % (42-75); PLATELET COUNT 309 10^3/uL (130-400)
[2021-02-28 14:03] LABS: ALBUMIN 4.2 GM/DL (3.2-4.5); BILIRUBIN,TOTAL 0.3 MG/DL (0.1-1.0); CALCIUM 9.5 MG/DL (8.5-10.1); CREATININE SERUM 0.78 MG/DL (0.60-1.30); POTASSIUM 4.3 MMOL/L (3.6-5.0); TOTAL PROTEIN 7.3 GM/DL (6.4-8.2)
== END ==
LOC: ONC 13:22
PROVIDERS: ATTEND Internal Medicine Hematology & Oncology
DX: C50.412 Malignant neoplasm of upper-outer quadrant of left female breast (principal); J44.9 Chronic obstructive pulmonary disease, unspecified; K43.9 Ventral hernia without obstruction or gangrene; I10 Essential (primary) hypertension; I25.10 Atherosclerotic heart disease of native coronary artery without angina pectoris; E03.9 Hypothyroidism, unspecified; R19.00 Intra-abdominal and pelvic swelling, mass and lump, unspecified site; Z72.0 Tobacco use; Z86.2 Personal history of diseases of the blood and blood-forming organs and certain disorders involving the immune mechanism
CPT/HCPCS: 80053; 82728; 85025; G0463; 99213

== ENCOUNTER → 2021-03-31 | Outpatient (CLI) | payer MEDICARE ==
--- NOTE | 2021-03-31 15:57 | Diagnostic Imaging Report ---
INDICATION: Routine screening. COMPARISON: 11/04/2018 and 10/11/2017. TECHNIQUE: Unilateral right 2D and 3D screening mammography was performed with CAD. FINDINGS: The right breast is heterogeneously dense, limiting the sensitivity of mammography. There are benign calcifications in the right breast. No mass or malignant-appearing microcalcifications are seen. The right axilla is unremarkable. IMPRESSION: No mammographic features suspicious for malignancy are identified. ACR BI-RADS Category 2: Benign findings. Result letter will be mailed to the patient. Note: At least 10% of breast cancer is not imaged by mammography. Dictated by: Dictated on workstation # [id number]
== END ==
LOC: RAD 15:00
PROVIDERS: ATTEND Internal Medicine Hematology & Oncology
DX: Z12.31 Encounter for screening mammogram for malignant neoplasm of breast (principal)
CPT/HCPCS: 77063

== ENCOUNTER 2021-10-03 13:12 | Emergency (ER) | payer OTHER, MEDICARE ==
[~2021-10-03] VITALS: Ht 157.5 cm; Wt 56.7 kg
[2021-10-03 13:13] VITALS: BP 138/97
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
[2021-10-03] MEDS ORDERED: NS IV 1000 ML 1,000 ML IV SCH (13:45)
--- NOTE | 2021-10-03 14:03 | Diagnostic Imaging Report ---
INDICATION: Right arm pain. FINDINGS: Two views of the right humerus demonstrate no fracture or dislocation. Articular surfaces are normal. No osseous lesion. IMPRESSION: Negative right humerus. Dictated by: Dictated on workstation # [id number]
[2021-10-03 14:34] LABS: BASOPHILS % (AUTO) 0 % (0-10); EOSINOPHILS # (AUTO) 0.1 10^3/uL (0.0-0.3); EOSINOPHILS % (AUTO) 1 % (0-10); HEMATOCRIT 45 % (35-52); HEMOGLOBIN 15.8 g/dL (11.5-16.0); LYMPHOCYTES # (AUTO) 1.4 10^3/uL (1.0-4.0); LYMPHOCYTES % (AUTO) 17 % (12-44); MEAN CORPUSCULAR HEMOGLOBIN 32 pg (25-34); MEAN CORPUSCULAR HGB CONC 35 g/dL (32-36); MEAN CORPUSCULAR VOLUME 92 fL (80-99); MEAN PLATELET VOLUME 9.5 fL (9.0-12.2); MONOCYTES # (AUTO) 0.5 10^3/uL (0.0-1.0); MONOCYTES % (AUTO) 7 % (0-12); NEUTROPHILS # (AUTO) 5.9 10^3/uL (1.8-7.8); NEUTROPHILS % (AUTO) 74 % (42-75); PLATELET COUNT 266 10^3/uL (130-400)
[2021-10-03 15:10] LABS: SODIUM 137 MMOL/L (135-145)
[2021-10-03 15:11] LABS: ALANINE AMINOTRANSFERASE 22 U/L (0-55); ALBUMIN 4.5 GM/DL (3.2-4.5); ALKALINE PHOSPHATASE 100 U/L (40-136); BILIRUBIN,TOTAL 0.2 MG/DL (0.1-1.0); BUN/CREATININE RATIO 10; CALCIUM 8.6 MG/DL (8.5-10.1); CARBON DIOXIDE 27 MMOL/L (21-32); CHLORIDE 101 MMOL/L (98-107); CREATININE SERUM 0.77 MG/DL (0.60-1.30); GFR ESTIMATED 81; GLUCOSE 119 MG/DL (70-105); MAGNESIUM 1.9 MG/DL (1.6-2.4); POTASSIUM 4.6 MMOL/L (3.6-5.0); TOTAL PROTEIN 7.3 GM/DL (6.4-8.2)
[2021-10-03 15:34] LABS: BILIRUBIN,URINE NEGATIVE (NEGATIVE); CLARITY,URINE CLEAR; COLOR,URINE YELLOW; GLUCOSE, URINE (UA) NEGATIVE (NEGATIVE); KETONES,URINE NEGATIVE (NEGATIVE); LEUKOCYTE ESTERASE ,URINE NEGATIVE (NEGATIVE); NITRITE,URINE NEGATIVE (NEGATIVE); PROTEIN,URINE NEGATIVE (NEGATIVE)
[2021-10-03 15:41] LABS: BACTERIA,URINE NEGATIVE /HPF; SQUAMOUS EPITHELIAL CELL,UR 0-2 /HPF; WBC,URINE RARE /HPF
[2021-10-03 15:46] LABS: AMPHETAMINE SCREEN, URINE NEGATIVE (NEGATIVE); BARBITURATE SCREEN URINE NEGATIVE (NEGATIVE); BENZODIAZEPINES SCREEN URINE POSITIVE (NEGATIVE); CANNABINOID SCREEN, URINE NEGATIVE (NEGATIVE); COCAINE SCREEN URINE NEGATIVE (NEGATIVE); METHADONE STAT NEGATIVE (NEGATIVE); OPIATE SCREEN URINE POSITIVE (NEGATIVE); OXYCODONE STAT NEGATIVE (NEGATIVE); PROPOXYPHENE STAT NEGATIVE (NEGATIVE); TRICYCLIC ANTIDEPRESSANTS SCRE NEGATIVE (NEGATIVE)
== END 2021-10-03 18:22 | disposition home or self-care (01) ==
LOC: EDUNIT# 13:12 → ER FS 13:14
DX: S40.021A Contusion of right upper arm, initial encounter (principal); T67.5XXA Heat exhaustion, unspecified, initial encounter; X30.XXXA Exposure to excessive natural heat, initial encounter; V49.40XA Driver injured in collision with unspecified motor vehicles in traffic accident, initial encounter
CPT/HCPCS: 36415; 73060; 80053; 80306; 81000; 83735; 85025; 99284; G0480; 80320

== ENCOUNTER 2021-10-04 17:12 | Emergency (ER) | payer OTHER, MEDICARE ==
[~2021-10-04] VITALS: Ht 154.9 cm; Wt 56.7 kg
[2021-10-04 17:12] VITALS: BP 158/62
[2021-10-04 17:25] LABS: BASOPHILS # (AUTO) 0.1 10^3/uL (0.0-0.1); BASOPHILS % (AUTO) 1 % (0-10); EOSINOPHILS # (AUTO) 0.1 10^3/uL (0.0-0.3); EOSINOPHILS % (AUTO) 1 % (0-10); HEMATOCRIT 44 % (35-52); HEMOGLOBIN 14.8 g/dL (11.5-16.0); LYMPHOCYTES % (AUTO) 21 % (12-44); MEAN CORPUSCULAR HEMOGLOBIN 32 pg (25-34); MEAN CORPUSCULAR HGB CONC 34 g/dL (32-36); MEAN CORPUSCULAR VOLUME 93 fL (80-99); MEAN PLATELET VOLUME 10.2 fL (9.0-12.2); MONOCYTES # (AUTO) 0.7 10^3/uL (0.0-1.0); MONOCYTES % (AUTO) 7 % (0-12); NEUTROPHILS # (AUTO) 6.5 10^3/uL (1.8-7.8); NEUTROPHILS % (AUTO) 70 % (42-75); PLATELET COUNT 267 10^3/uL (130-400); WHITE BLOOD COUNT 9.3 10^3/uL (4.3-11.0)
[2021-10-04] MEDS ORDERED: NS IV 1000 ML 1,000 ML IV STA (17:28)
[2021-10-04] MEDS ORDERED: fentaNYL INJ 100 MCG/2 ML AMP IVP STA (17:28)
[2021-10-04] MEDS ORDERED: IOHEXOL 350 MG/ML 100 ML (OMNIPAQUE 350) VIAL IV ONE (17:30)
[2021-10-04] MEDS ORDERED: HOLD METFORMIN - RECEIVED CONTRAST 20 ML VIAL IV SCH (17:30)
[2021-10-04] MEDS ORDERED: NS 100 ML (IVPB) BAG IV ONE (17:30)
[2021-10-04 17:39] LABS: INR 0.9 (0.8-1.4); PROTHROMBIN TIME PATIENT 12.9 SEC (12.2-14.7)
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
[2021-10-04 17:52] LABS: BILIRUBIN,TOTAL 0.3 MG/DL (0.1-1.0); CALCIUM 8.8 MG/DL (8.5-10.1); CREATININE SERUM 0.88 MG/DL (0.60-1.30); POTASSIUM 4.1 MMOL/L (3.6-5.0)
[2021-10-04 17:53] LABS: ALBUMIN 4.4 GM/DL (3.2-4.5); TOTAL PROTEIN 7.3 GM/DL (6.4-8.2)
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
[2021-10-04] MEDS ORDERED: FLEET ENEMA ADULT 1 EA BTL PR STA (19:48)
== END 2021-10-04 20:16 | disposition home or self-care (01) ==
LOC: EDUNIT# 17:12 → ER FS 17:13
DX: S20.212A Contusion of left front wall of thorax, initial encounter (principal); K56.0 Paralytic ileus; J44.9 Chronic obstructive pulmonary disease, unspecified; F17.210 Nicotine dependence, cigarettes, uncomplicated; V49.40XA Driver injured in collision with unspecified motor vehicles in traffic accident, initial encounter
CPT/HCPCS: 36415; 70450; 71260; 72125; 74177; 80053; 83690; 83735; 84484; 85025; 85610; 85730; 93005; 93041; Q9967

== ENCOUNTER → 2021-12-15 | Outpatient (CLI) | payer OTHER, MEDICARE ==
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
== END ==
LOC: RAD 11:44
PROVIDERS: ATTEND Internal Medicine
DX: S79.911A Unspecified injury of right hip, initial encounter (principal); S22.32XA Fracture of one rib, left side, initial encounter for closed fracture; V89.2XXA Person injured in unspecified motor-vehicle accident, traffic, initial encounter
CPT/HCPCS: 71100; 73502